=== PATIENT | female | born 1950 | race Caucasian/White ===

== ENCOUNTER 2021-01-28 17:40 | Observation (INO) | payer OTHER ==
[2021-01-28 20:41] LABS: BASO % 0.3 % (0-2.0); HEMATOCRIT 35.3 % (32.4-45.2); HEMOGLOBIN 12.1 GM/dL (10.7-15.3); LYMPH % 11.3 % (8-40); MCH 30.7 pg (25.7-33.7); MCHC 34.2 g/dl (32.0-36.0); MEAN CELL VOLUME 89.8 fl (80-96); MEAN PLT VOLUME 6.7 fl (7.5-11.1); MONO % 2.8 % (3.8-10.2); NEUT % 85.6 % (42.8-82.8); PLATELET COUNT 349 K/MM3 (134-434); RBC 3.93 M/mm3 (3.60-5.2); WHITE BLOOD COUNT 5.7 K/mm3 (4.0-10.0)
[2021-01-28 21:11] LABS: POTASSIUM 4.2 mmol/L (3.5-5.1)
[2021-01-28 21:13] LABS: CALCIUM 9.8 mg/dL (8.5-10.1)
[2021-01-28 21:14] LABS: ALBUMIN 4.1 g/dl (3.4-5.0)
[2021-01-28 21:16] LABS: CREATININE 1.1 mg/dL (0.55-1.3)
[2021-01-28 21:18] LABS: BILIRUBIN,TOTAL 0.5 mg/dL (0.2-1); TOT PROT 7.6 g/dl (6.4-8.2)
[2021-01-28] MEDS ORDERED: SODIUM CHLORIDE 1,000 ML IV STA ×2 (21:23→22:00)
[2021-01-28] MEDS ORDERED: ACETAMINOPHEN 1000 MG/100 ML VIAL (NON FORMULARY) IVPB PRN (21:32)
[2021-01-28] MEDS ORDERED: ACETAMINOPHEN INJECTION 100 ML IVPB ONE (21:56)
[2021-01-28 22:44] LABS: URINE APPEARANCE CLEAR; URINE BILIRUBIN NEGATIVE (NEGATIVE); URINE COLOR YELLOW; URINE GLUCOSE (UA) 2+ (NEGATIVE); URINE KETONE NEGATIVE (NEGATIVE); URINE LEUK ESTERASE NEGATIVE (NEGATIVE); URINE NITRITE NEGATIVE (NEGATIVE); URINE PROTEIN NEGATIVE (NEGATIVE); URINE UROBILINOGEN 0.2 mg/dL (0.2-1.0)
[2021-01-29] MEDS ORDERED: ACETAMINOPHEN 325 MG TABLET (FP) PO PRN (04:21)
[2021-01-29] MEDS ORDERED: METOCLOPRAMIDE HCL INJECTION 10 MG/2 ML VIAL IVPUSH PRN (04:23)
[2021-01-29] MEDS: SODIUM CHLORIDE 1,000 ML IV SCH (05:22)
[2021-01-29 05:37] LABS: HEMATOCRIT 30.5 % (32.4-45.2); HEMOGLOBIN 10.5 GM/dL (10.7-15.3); MCH 31.2 pg (25.7-33.7); MCHC 34.4 g/dl (32.0-36.0); MEAN CELL VOLUME 90.6 fl (80-96); MEAN PLT VOLUME 6.8 fl (7.5-11.1); PLATELET COUNT 296 K/MM3 (134-434); RBC 3.37 M/mm3 (3.60-5.2); RDW 13.9 % (11.6-15.6); WHITE BLOOD COUNT 4.5 K/mm3 (4.0-10.0)
[2021-01-29] MEDS ORDERED: LEVOTHYROXINE NA 25 MCG TABLET (FP) ONE (06:04)
[2021-01-29 06:05] LABS: CALCIUM 8.4 mg/dL (8.5-10.1); POTASSIUM 3.8 mmol/L (3.5-5.1)
[2021-01-29 06:07] LABS: BLOOD UREA NITROGEN 17.2 mg/dL (7-18)
[2021-01-29 06:09] LABS: CREATININE 0.9 mg/dL (0.55-1.3)
[2021-01-29] MEDS: LEVOTHYROXINE NA 50 MCG TABLET (FP) PO SCH (06:16)
[2021-01-29] MEDS: INSULIN SLIDING SCALE (NOVOLOG) 1 VIAL SQ SCH ×4 (08:30→21:18)
[2021-01-29] MEDS ORDERED: LOSARTAN POTASSIUM 50 MG TABLET ONE (08:44)
[2021-01-29] MEDS ORDERED: CHOLECALCIFEROL (VIT D3) 1,000 UNIT (25 MCG) TABLET ONE (08:44)
[2021-01-29] MEDS ORDERED: ENOXAPARIN NA (PORCINE) 40 MG/0.4 ML DISP.SYRIN SQ ONE (08:45)
[2021-01-29] MEDS: LOSARTAN POTASSIUM 50 MG TABLET PO SCH (09:18)
[2021-01-29] MEDS: CHOLECALCIFEROL (VIT D3) 1,000 UNIT (25 MCG) TABLET PO SCH (09:18)
[2021-01-29] MEDS: MEMANTINE HCL 10 MG TABLET (FP) PO SCH ×2 (09:18→21:59)
[2021-01-29] MEDS: ENOXAPARIN NA (PORCINE) 40 MG/0.4 ML DISP.SYRIN SQ SCH (09:18)
[2021-01-29] MEDS ORDERED: CILOSTAZOL 100 MG TABLET PO SCH (10:00)
[2021-01-29] MEDS ORDERED: LOVASTATIN 20 MG PO SCH (10:00)
[2021-01-29 16:22] VITALS: BMI 27.7
[2021-01-29] MEDS ORDERED: ATORVASTATIN CA 10 MG TABLET (FP) PO SCH (22:00)
[2021-01-30] MEDS: INSULIN SLIDING SCALE (NOVOLOG) 1 VIAL SQ SCH ×2 (06:00→12:36)
[2021-01-30] MEDS: LEVOTHYROXINE NA 50 MCG TABLET (FP) PO SCH (06:04)
[2021-01-30] MEDS ORDERED: INSULIN (NOVOLOG) ASPART 100 UNITS/ML 10ML VIAL ONE (06:10)
[2021-01-30] MEDS ORDERED: INSULIN (LEVEMIR) 100 UNITS/ML UNITS SQ SCH (07:00)
[2021-01-30 07:50] LABS: HEMATOCRIT 34.4 % (32.4-45.2); HEMOGLOBIN 11.6 GM/dL (10.7-15.3); MCH 30.6 pg (25.7-33.7); MCHC 33.6 g/dl (32.0-36.0); MEAN CELL VOLUME 91.1 fl (80-96); MEAN PLT VOLUME 6.7 fl (7.5-11.1); PLATELET COUNT 343 K/MM3 (134-434); RBC 3.78 M/mm3 (3.60-5.2); RDW 14.1 % (11.6-15.6); WHITE BLOOD COUNT 4.2 K/mm3 (4.0-10.0)
[2021-01-30 08:09] LABS: POTASSIUM 3.5 mmol/L (3.5-5.1)
[2021-01-30 08:13] LABS: BLOOD UREA NITROGEN 16.3 mg/dL (7-18); CALCIUM 8.9 mg/dL (8.5-10.1)
[2021-01-30 08:16] LABS: ALBUMIN 3.8 g/dl (3.4-5.0); CREATININE 0.9 mg/dL (0.55-1.3)
[2021-01-30 08:18] LABS: BILIRUBIN,TOTAL 0.6 mg/dL (0.2-1); TOT PROT 6.7 g/dl (6.4-8.2)
[2021-01-30] MEDS ORDERED: PT OWN MED DRAWER 7, Y5N ONE (09:37)
[2021-01-30] MEDS: LOSARTAN POTASSIUM 50 MG TABLET PO SCH (09:41)
[2021-01-30] MEDS: ENOXAPARIN NA (PORCINE) 40 MG/0.4 ML DISP.SYRIN SQ SCH (09:42)
[2021-01-30] MEDS: MEMANTINE HCL 10 MG TABLET (FP) PO SCH (09:42)
[2021-01-30] MEDS: CHOLECALCIFEROL (VIT D3) 1,000 UNIT (25 MCG) TABLET PO SCH (09:42)
[2021-01-30] MEDS: SODIUM CHLORIDE 1,000 ML IV SCH (09:47)
[2021-01-30 14:13] VITALS: BP 126/74; PULSE 65; TEMP 98.7
== END 2021-01-30 14:52 | disposition home or self-care (01) ==
LOC: JER 17:40 → INTOOBSV 01-29 03:29 → JERBED 01-29 03:29 → J7W 01-29 11:57
PROVIDERS: ADMIT Hospitalist
PROC: 3E033NZ Introduction of Analgesics, Hypnotics, Sedatives into Peripheral Vein, Percutaneous Approach (ICD-10-PCS; principal; 2021-01-29)
PROC: 3E023GC Introduction of Other Therapeutic Substance into Muscle, Percutaneous Approach (ICD-10-PCS; 2021-01-29)
PROC: 3E013VG Introduction of Insulin into Subcutaneous Tissue, Percutaneous Approach (ICD-10-PCS; 2021-01-29)
PROC: 3E0337Z Introduction of Electrolytic and Water Balance Substance into Peripheral Vein, Percutaneous Approach (ICD-10-PCS; 2021-01-29)
DX: G30.9 Alzheimer's disease, unspecified (principal); F02.80 Dementia in other diseases classified elsewhere, unspecified severity, without behavioral disturbance, psychotic disturbance, mood disturbance, and anxiety; E11.9 Type 2 diabetes mellitus without complications; I10 Essential (primary) hypertension; E78.5 Hyperlipidemia, unspecified; E03.9 Hypothyroidism, unspecified; Z29.9 Encounter for prophylactic measures, unspecified
CPT/HCPCS: 36415; 70450-TC; 71250-TC; 74176-TC; 80048; 80053; 81003; 82378; 82550; 82728; 82962; 83540; 83550; 83605; 83690; 84484; 85025; 85027; 87086; 93005; 93010; 96361; 96372; 96374; 96375; 99285-25; C9803; G0378; J0131; U0003

== ENCOUNTER 2021-05-21 05:26 | Day surgery (SDC) | payer OTHER ==
[2021-05-20 14:50] VITALS: BMI 26.5
[2021-05-21 13:34] VITALS: TEMP 97.3
[2021-05-21 14:28] VITALS: BP 119/69; PULSE 84
== END 2021-05-21 14:50 | disposition home or self-care (01) ==
LOC: JASU-ENDO 05:26
PROVIDERS: ATTEND Internal Medicine Gastroenterology
PROC: 0DJD8ZZ Inspection of Lower Intestinal Tract, Via Natural or Artificial Opening Endoscopic (ICD-10-PCS; principal; 2021-05-21 13:09)
DX: Z12.11 Encounter for screening for malignant neoplasm of colon (principal)
CPT/HCPCS: C9803; U0003; U0005

== ENCOUNTER 2022-03-13 17:15 | Inpatient (IN) | payer OTHER ==
[2022-03-13] MEDS ORDERED: LACTATED RINGERS SOLUTION 1000 ML INFUS.BAG IV ONE ×2 (17:59→19:46)
[2022-03-13 18:27] LABS: BASO % 1.4 % (0-2.0); HEMATOCRIT 31.9 % (32.4-45.2); HEMOGLOBIN 10.5 GM/dL (10.7-15.3); LYMPH % 21.8 % (8-40); MCH 28.2 pg (25.7-33.7); MCHC 32.9 g/dl (32.0-36.0); MEAN CELL VOLUME 85.7 fl (80-96); MEAN PLT VOLUME 7.3 fl (7.5-11.1); MONO % 14.5 % (3.8-10.2); NEUT % 60.3 % (42.8-82.8); PLATELET COUNT 207 10^3/uL (134-434); RBC 3.73 M/mm3 (3.60-5.2); RDW 17.6 % (11.6-15.6); WHITE BLOOD COUNT 2.5 K/mm3 (4.0-10.0)
[2022-03-13 18:35] LABS: INR 1.03 (0.83-1.09); PROTHROMBIN TIME (PATIENT) 11.9 SEC (9.7-13.0)
[2022-03-13 18:38] LABS: ACTIVATED PTT 28.4 SECONDS (25.2-36.5)
[2022-03-13 18:46] LABS: CALCIUM 8.3 mg/dL (8.5-10.1)
[2022-03-13 18:47] LABS: ALBUMIN 2.5 g/dl (3.4-5.0); BLOOD UREA NITROGEN 21.6 mg/dL (7-18)
[2022-03-13 18:50] LABS: CREATININE 0.9 mg/dL (0.55-1.3)
[2022-03-13 18:51] LABS: BILIRUBIN,TOTAL 0.7 mg/dL (0.2-1); TOT PROT 5.6 g/dl (6.4-8.2)
[2022-03-13] MEDS ORDERED: AMPICILLIN NA/SULBACTAM NA 1.5 GM in SODIUM CHLORIDE 100 ML IVPB ONE (19:18)
[2022-03-13 19:30] LABS: EPI CELLS 4 /uL (0-25.1); HYALINE CASTS 0 /uL (0-3.1); URINE APPEARANCE CLEAR; URINE BACTERIA >9,000 /uL (0-1359); URINE BILIRUBIN NEGATIVE (NEGATIVE); URINE COLOR YELLOW; URINE GLUCOSE (UA) 3+ (NEGATIVE); URINE KETONE NEGATIVE (NEGATIVE); URINE LEUK ESTERASE NEGATIVE (NEGATIVE); URINE NITRITE POSITIVE (NEGATIVE); URINE PROTEIN NEGATIVE (NEGATIVE); URINE RBC 3 /uL (0-23.9); URINE UROBILINOGEN 0.2 mg/dL (0.2-1.0); URINE WBC 18 /uL (0-25.8)
[2022-03-13 20:20] LABS: ANISOCYTOSIS 1+; MACROCYTOSIS 1+
[2022-03-13 20:22] LABS: PLATELET ESTIMATE ADEQUATE
[2022-03-13] MEDS ORDERED: CEFTRIAXONE 1 GM in DEXTROSE 5%-WATER - 100 ML IVPB ONE (20:35)
[2022-03-14] MEDS: SODIUM CHLORIDE 1,000 ML IV SCH ×2 (03:36→17:21)
[2022-03-14] MEDS: LEVOTHYROXINE NA 50 MCG TABLET (FP) PO SCH ×2 (06:26→06:32)
[2022-03-14] MEDS: INSULIN SLIDING SCALE (NOVOLOG) 1 VIAL SQ SCH ×4 (06:26→22:46)
[2022-03-14] MEDS ORDERED: cefTRIAXone SODIUM 1 GM VIAL ONE (09:19)
[2022-03-14] MEDS ORDERED: DEXTROSE 5%-WATER - 50 ML IVPB ONE (09:19)
[2022-03-14] MEDS: QUEtiapine FUMARATE 25 MG TABLET PO SCH (09:20)
[2022-03-14] MEDS: MIRTAZAPINE 15 MG TABLET (FP) PO SCH (09:21)
[2022-03-14] MEDS: LOSARTAN POTASSIUM 50 MG TABLET PO SCH (09:21)
[2022-03-14] MEDS: CEFTRIAXONE 1 GM in DEXTROSE 5%-WATER - 50 ML IVPB SCH (09:22)
[2022-03-14] MEDS: ENOXAPARIN NA (PORCINE) 40 MG/0.4 ML DISP.SYRIN SQ SCH (09:22)
[2022-03-14] MEDS: DONEPEZIL HCL 10 MG TABLET (FP) PO SCH (22:45)
[2022-03-14] MEDS: ATORVASTATIN CA 10 MG TABLET (FP) PO SCH (22:45)
[2022-03-15] MEDS: DEXTROSE 5%-NORMAL SALINE 1,000 ML IV SCH (01:55)
[2022-03-15] MEDS: LEVOTHYROXINE NA 50 MCG TABLET (FP) PO SCH (06:08)
[2022-03-15] MEDS: INSULIN SLIDING SCALE (NOVOLOG) 1 VIAL SQ SCH ×3 (06:08→17:11)
[2022-03-15 08:43] LABS: HEMATOCRIT 30.3 % (32.4-45.2); HEMOGLOBIN 9.9 GM/dL (10.7-15.3); MCH 28.2 pg (25.7-33.7); MCHC 32.8 g/dl (32.0-36.0); MEAN CELL VOLUME 86.1 fl (80-96); MEAN PLT VOLUME 6.8 fl (7.5-11.1); PLATELET COUNT 204 10^3/uL (134-434); RBC 3.52 M/mm3 (3.60-5.2); RDW 17.6 % (11.6-15.6); WHITE BLOOD COUNT 2.1 K/mm3 (4.0-10.0)
[2022-03-15 08:58] LABS: CHLORIDE 110 mmol/L (98-107); SODIUM 138 mmol/L (136-145)
[2022-03-15 09:03] LABS: ALBUMIN 2.2 g/dl (3.4-5.0); ANION GAP 5 MMOL/L (8-16); CALCIUM 7.7 mg/dL (8.5-10.1); CO2 24 mmol/L (21-32); GLUCOSE,RANDOM 113 mg/dL (74-106)
[2022-03-15 09:06] LABS: PHOSPHOROUS 3.4 mg/dL (2.5-4.9); SGPT/ALT 93 U/L (13-61)
[2022-03-15 09:07] LABS: CREATININE 0.6 mg/dL (0.55-1.3); SGOT/AST 84 U/L (15-37)
[2022-03-15 09:08] LABS: BILIRUBIN,TOTAL 0.6 mg/dL (0.2-1); TOT PROT 4.8 g/dl (6.4-8.2)
[2022-03-15 09:10] LABS: ALK PHOS > 1000 U/L (45-117)
[2022-03-15] MEDS ORDERED: cefTRIAXone SODIUM 1 GM VIAL ONE (09:12)
[2022-03-15] MEDS ORDERED: DEXTROSE 5%-WATER - 50 ML IVPB ONE (09:13)
[2022-03-15] MEDS: QUEtiapine FUMARATE 25 MG TABLET PO SCH (09:23)
[2022-03-15] MEDS: MIRTAZAPINE 15 MG TABLET (FP) PO SCH (09:23)
[2022-03-15] MEDS: LOSARTAN POTASSIUM 50 MG TABLET PO SCH (09:23)
[2022-03-15] MEDS: ENOXAPARIN NA (PORCINE) 40 MG/0.4 ML DISP.SYRIN SQ SCH (09:24)
[2022-03-15] MEDS: CEFTRIAXONE 1 GM in DEXTROSE 5%-WATER - 50 ML IVPB SCH (10:31)
[2022-03-15 14:13] VITALS: BMI 23.0
[2022-03-15] MEDS: ATORVASTATIN CA 10 MG TABLET (FP) PO SCH (21:11)
[2022-03-15] MEDS: DONEPEZIL HCL 10 MG TABLET (FP) PO SCH (21:11)
[2022-03-15] MEDS ORDERED: INSULIN (NOVOLOG) ASPART 100 UNITS/ML 10ML VIAL ONE (23:53)
[2022-03-16] MEDS: DEXTROSE 5%-NORMAL SALINE 1,000 ML IV SCH (03:34)
[2022-03-16] MEDS: LEVOTHYROXINE NA 50 MCG TABLET (FP) PO SCH (08:04)
[2022-03-16] MEDS: INSULIN SLIDING SCALE (NOVOLOG) 1 VIAL SQ SCH ×5 (08:09→22:45)
[2022-03-16 08:30] LABS: HEMATOCRIT 28.4 % (32.4-45.2); HEMOGLOBIN 9.3 GM/dL (10.7-15.3); MCH 28.2 pg (25.7-33.7); MCHC 32.7 g/dl (32.0-36.0); MEAN CELL VOLUME 86.2 fl (80-96); MEAN PLT VOLUME 6.9 fl (7.5-11.1); PLATELET COUNT 198 10^3/uL (134-434); RDW 17.8 % (11.6-15.6)
[2022-03-16 08:44] LABS: WHITE BLOOD COUNT 1.6 K/mm3 (4.0-10.0)
[2022-03-16 08:48] LABS: ALBUMIN 2.1 g/dl (3.4-5.0); BLOOD UREA NITROGEN 8.9 mg/dL (7-18); MAGNESIUM 1.8 mg/dL (1.8-2.4)
[2022-03-16 08:50] LABS: CALCIUM 7.6 mg/dL (8.5-10.1)
[2022-03-16 08:51] LABS: CREATININE 0.5 mg/dL (0.55-1.3); PHOSPHOROUS 2.6 mg/dL (2.5-4.9)
[2022-03-16 08:52] LABS: BILIRUBIN,TOTAL 0.8 mg/dL (0.2-1); TOT PROT 4.6 g/dl (6.4-8.2)
[2022-03-16] MEDS: LOSARTAN POTASSIUM 50 MG TABLET PO SCH (09:50)
[2022-03-16] MEDS: QUEtiapine FUMARATE 25 MG TABLET PO SCH (09:50)
[2022-03-16] MEDS: ENOXAPARIN NA (PORCINE) 40 MG/0.4 ML DISP.SYRIN SQ SCH (09:50)
[2022-03-16] MEDS: MIRTAZAPINE 15 MG TABLET (FP) PO SCH ×2 (10:16→22:36)
[2022-03-16] MEDS ORDERED: DEXTROSE 5%-WATER - 50 ML IVPB ONE (10:27)
[2022-03-16] MEDS ORDERED: cefTRIAXone SODIUM 1 GM VIAL ONE (10:27)
[2022-03-16] MEDS: CEFTRIAXONE 1 GM in DEXTROSE 5%-WATER - 50 ML IVPB SCH (10:34)
[2022-03-16] MEDS ORDERED: INSULIN (NOVOLOG) ASPART 100 UNITS/ML 10ML VIAL ONE ×4 (11:28→17:03)
[2022-03-16 13:18] LABS: URIC ACID 3.6 mg/dL (2.6-7.2)
[2022-03-16] MEDS: DONEPEZIL HCL 10 MG TABLET (FP) PO SCH (22:36)
[2022-03-16] MEDS: ATORVASTATIN CA 10 MG TABLET (FP) PO SCH (22:36)
[2022-03-17] MEDS: DEXTROSE 5%-NORMAL SALINE 1,000 ML IV SCH (02:56)
[2022-03-17] MEDS: INSULIN SLIDING SCALE (NOVOLOG) 1 VIAL SQ SCH ×4 (06:36→22:01)
[2022-03-17] MEDS: LEVOTHYROXINE NA 50 MCG TABLET (FP) PO SCH (06:39)
[2022-03-17] MEDS: LOSARTAN POTASSIUM 50 MG TABLET PO SCH (09:31)
[2022-03-17] MEDS: ENOXAPARIN NA (PORCINE) 40 MG/0.4 ML DISP.SYRIN SQ SCH (09:31)
[2022-03-17] MEDS: QUEtiapine FUMARATE 25 MG TABLET PO SCH (09:31)
[2022-03-17] MEDS ORDERED: cefTRIAXone SODIUM 1 GM VIAL ONE (10:27)
[2022-03-17] MEDS ORDERED: DEXTROSE 5%-WATER - 50 ML IVPB ONE (10:27)
[2022-03-17] MEDS: CEFTRIAXONE 1 GM in DEXTROSE 5%-WATER - 50 ML IVPB SCH (10:34)
[2022-03-17] MEDS ORDERED: IBUPROFEN 400 MG TABLET (FP) PO PRN (11:26)
[2022-03-17] MEDS ORDERED: INSULIN (NOVOLOG) ASPART 100 UNITS/ML 10ML VIAL ONE ×4 (11:30→20:06)
[2022-03-17 16:44] LABS: HEMATOCRIT 31.4 % (32.4-45.2); HEMOGLOBIN 10.2 GM/dL (10.7-15.3); MCH 28.1 pg (25.7-33.7); MCHC 32.4 g/dl (32.0-36.0); MEAN CELL VOLUME 86.9 fl (80-96); MEAN PLT VOLUME 6.7 fl (7.5-11.1); PLATELET COUNT 191 10^3/uL (134-434); RBC 3.61 M/mm3 (3.60-5.2); RDW 18.1 % (11.6-15.6)
[2022-03-17 16:47] LABS: WHITE BLOOD COUNT 1.5 K/mm3 (4.0-10.0)
[2022-03-17 17:15] LABS: CALCIUM 7.6 mg/dL (8.5-10.1)
[2022-03-17 17:16] LABS: ALBUMIN 2.3 g/dl (3.4-5.0); BLOOD UREA NITROGEN 6.5 mg/dL (7-18)
[2022-03-17 17:17] LABS: BILIRUBIN,DIRECT 0.2 mg/dL (0.0-0.2)
[2022-03-17 17:18] LABS: ANISOCYTOSIS 0; CREATININE 0.7 mg/dL (0.55-1.3); MACROCYTOSIS 0
[2022-03-17 17:20] LABS: BILIRUBIN,TOTAL 0.4 mg/dL (0.2-1)
[2022-03-17] MEDS: DONEPEZIL HCL 10 MG TABLET (FP) PO SCH (22:00)
[2022-03-17] MEDS: MIRTAZAPINE 15 MG TABLET (FP) PO SCH (22:00)
[2022-03-17] MEDS: ATORVASTATIN CA 10 MG TABLET (FP) PO SCH (22:00)
[2022-03-18] MEDS: DEXTROSE 5%-NORMAL SALINE 1,000 ML IV SCH (03:25)
[2022-03-18] MEDS: LEVOTHYROXINE NA 50 MCG TABLET (FP) PO SCH (06:09)
[2022-03-18] MEDS: INSULIN SLIDING SCALE (NOVOLOG) 1 VIAL SQ SCH ×4 (06:09→22:43)
[2022-03-18 08:06] LABS: CARCINOEMBRYONIC ANTIGEN 2.6 ng/mL (0.0-4.7)
[2022-03-18 09:01] LABS: HEMATOCRIT 30.4 % (32.4-45.2); HEMOGLOBIN 9.9 GM/dL (10.7-15.3); MCHC 32.6 g/dl (32.0-36.0); MEAN PLT VOLUME 6.7 fl (7.5-11.1); PLATELET COUNT 205 10^3/uL (134-434); RBC 3.53 M/mm3 (3.60-5.2); RDW 18.2 % (11.6-15.6)
[2022-03-18 09:28] LABS: CALCIUM 7.8 mg/dL (8.5-10.1)
[2022-03-18 09:29] LABS: ALBUMIN 2.2 g/dl (3.4-5.0)
[2022-03-18] MEDS ORDERED: DEXTROSE 5%-WATER - 50 ML IVPB ONE (09:29)
[2022-03-18] MEDS ORDERED: cefTRIAXone SODIUM 1 GM VIAL ONE (09:29)
[2022-03-18 09:32] LABS: CREATININE 0.7 mg/dL (0.55-1.3)
[2022-03-18 09:33] LABS: TOT PROT 4.7 g/dl (6.4-8.2)
[2022-03-18 09:34] LABS: WHITE BLOOD COUNT 1.9 K/mm3 (4.0-10.0)
[2022-03-18 09:35] LABS: BILIRUBIN,TOTAL 0.5 mg/dL (0.2-1)
[2022-03-18] MEDS: CEFTRIAXONE 1 GM in DEXTROSE 5%-WATER - 50 ML IVPB SCH (10:29)
[2022-03-18] MEDS: ENOXAPARIN NA (PORCINE) 40 MG/0.4 ML DISP.SYRIN SQ SCH (10:37)
[2022-03-18] MEDS: QUEtiapine FUMARATE 25 MG TABLET PO SCH (10:37)
[2022-03-18] MEDS: LOSARTAN POTASSIUM 50 MG TABLET PO SCH (10:37)
[2022-03-18 11:23] LABS: ANISOCYTOSIS 2+; MACROCYTOSIS 0; OVALOCYTE 1+; TEAR DROP CELLS 1+; TOXIC GRANULATION 2+
[2022-03-18 17:07] LABS: GLIADIN ANTIBODY IGA 3 units (0-19); GLIADIN ANTIBODY IGG 1 units (0-19); TRANSGLUTAMINASE IGG < 2 U/mL (0-5)
[2022-03-18] MEDS: MIRTAZAPINE 15 MG TABLET (FP) PO SCH (22:38)
[2022-03-18] MEDS: ATORVASTATIN CA 10 MG TABLET (FP) PO SCH (22:38)
[2022-03-18] MEDS: DONEPEZIL HCL 10 MG TABLET (FP) PO SCH (22:38)
[2022-03-19] MEDS: DEXTROSE 5%-NORMAL SALINE 1,000 ML IV SCH (02:59)
[2022-03-19] MEDS: LEVOTHYROXINE NA 50 MCG TABLET (FP) PO SCH (06:14)
[2022-03-19] MEDS: INSULIN SLIDING SCALE (NOVOLOG) 1 VIAL SQ SCH ×3 (06:14→17:51)
[2022-03-19 09:00] LABS: HEMATOCRIT 30.1 % (32.4-45.2); HEMOGLOBIN 9.8 GM/dL (10.7-15.3); MCH 28.2 pg (25.7-33.7); MCHC 32.7 g/dl (32.0-36.0); MEAN CELL VOLUME 86.5 fl (80-96); MEAN PLT VOLUME 6.7 fl (7.5-11.1); PLATELET COUNT 195 10^3/uL (134-434); RBC 3.48 M/mm3 (3.60-5.2); RDW 18.1 % (11.6-15.6); WHITE BLOOD COUNT 2.1 K/mm3 (4.0-10.0)
[2022-03-19 09:24] LABS: BLOOD UREA NITROGEN 5.9 mg/dL (7-18); CALCIUM 7.7 mg/dL (8.5-10.1)
[2022-03-19 09:25] LABS: ALBUMIN 2.2 g/dl (3.4-5.0)
[2022-03-19 09:28] LABS: CREATININE 0.7 mg/dL (0.55-1.3)
[2022-03-19 09:29] LABS: TOT PROT 4.6 g/dl (6.4-8.2)
[2022-03-19] MEDS ORDERED: cefTRIAXone SODIUM 1 GM VIAL ONE (09:50)
[2022-03-19] MEDS ORDERED: DEXTROSE 5%-WATER - 50 ML IVPB ONE (09:51)
[2022-03-19] MEDS: ENOXAPARIN NA (PORCINE) 40 MG/0.4 ML DISP.SYRIN SQ SCH (09:56)
[2022-03-19] MEDS: QUEtiapine FUMARATE 25 MG TABLET PO SCH (09:57)
[2022-03-19] MEDS: LOSARTAN POTASSIUM 50 MG TABLET PO SCH (09:57)
[2022-03-19 10:00] LABS: BILIRUBIN,TOTAL 0.4 mg/dL (0.2-1)
[2022-03-19] MEDS: CEFTRIAXONE 1 GM in DEXTROSE 5%-WATER - 50 ML IVPB SCH (10:59)
[2022-03-19] MEDS ORDERED: INSULIN (NOVOLOG) ASPART 100 UNITS/ML 10ML VIAL ONE (12:08)
[2022-03-19 14:31] VITALS: BP 109/60; PULSE 75; TEMP 98.7
[2022-03-19] MEDS ORDERED: LORazepam 1 MG TABLET PO PRN (16:10)
[2022-03-19 21:56] LABS: HIV INTERPRETATION NEGATIVE (NEGATIVE)
== END 2022-03-19 21:16 | disposition home or self-care (01) | DRG 690 ==
LOC: JER 17:15 → JERBED 20:39 → J8W 03-14 02:12
PROVIDERS: ADMIT Internal Medicine; ATTEND Internal Medicine
DX: N39.0 Urinary tract infection, site not specified (principal); E87.1 Hypo-osmolality and hyponatremia; K52.9 Noninfective gastroenteritis and colitis, unspecified; E03.9 Hypothyroidism, unspecified; I10 Essential (primary) hypertension; E11.9 Type 2 diabetes mellitus without complications; G30.9 Alzheimer's disease, unspecified; E78.5 Hyperlipidemia, unspecified; R74.8 Abnormal levels of other serum enzymes; E86.0 Dehydration; R74.01 Elevation of levels of liver transaminase levels; R63.4 Abnormal weight loss; Z68.23 Body mass index [BMI] 23.0-23.9, adult; B96.20 Unspecified Escherichia coli [E. coli] as the cause of diseases classified elsewhere; D72.819 Decreased white blood cell count, unspecified
CPT/HCPCS: 36415; 71045-TC-FY; 74177-TC; 74182-TC; 76705-TC; 80048; 80053; 80076; 81003; 82105; 82306; 82378; 82607; 82728; 82746; 82784; 82962; 82977; 83010; 83516; 83540; 83550; 83605; 83615; 83735; 83970; 84080; 84100; 84132; 84439; 84443; 84484; 84550; 85025; 85027; 85610; 85730; 86038; 86140; 86301; 86803; 86850; 86900; 86901; 87040; 87086; 87177; 87186; 87209; 87324; 87340; 87389; 87449; 87517; 87529; 93005; 93010; 99285-25; A9579; C9803-CS; Q9967; U0003; U0005

== ENCOUNTER 2022-04-09 13:39 | Emergency (ER) | payer OTHER ==
[2022-04-09 13:50] VITALS: TEMP 98.1; BMI 21.7
[2022-04-09 15:23] LABS: HEMATOCRIT 28.6 % (32.4-45.2); HEMOGLOBIN 9.6 GM/dL (10.7-15.3); MCH 27.8 pg (25.7-33.7); MCHC 33.4 g/dl (32.0-36.0); MEAN CELL VOLUME 83.4 fl (80-96); MEAN PLT VOLUME 7.5 fl (7.5-11.1); PLATELET COUNT 116 10^3/uL (134-434); RBC 3.43 M/mm3 (3.60-5.2); RDW 17.9 % (11.6-15.6)
[2022-04-09 15:29] LABS: WHITE BLOOD COUNT 1.6 K/mm3 (4.0-10.0)
[2022-04-09 15:30] LABS: INR 1.01 (0.83-1.09); PROTHROMBIN TIME (PATIENT) 11.6 SEC (9.7-13.0)
[2022-04-09 15:43] LABS: CALCIUM 8.3 mg/dL (8.5-10.1)
[2022-04-09 15:44] LABS: ALBUMIN 2.1 g/dl (3.4-5.0); BLOOD UREA NITROGEN 17.7 mg/dL (7-18); MAGNESIUM 2.3 mg/dL (1.8-2.4)
[2022-04-09 15:47] LABS: CREATININE 0.6 mg/dL (0.55-1.3)
[2022-04-09 15:49] LABS: BILIRUBIN,TOTAL 4.9 mg/dL (0.2-1); TOT PROT 5.2 g/dl (6.4-8.2)
[2022-04-09 16:17] LABS: URINE APPEARANCE CLEAR; URINE BILIRUBIN 2+ (NEGATIVE); URINE COLOR DK YELLOW; URINE GLUCOSE (UA) 2+ (NEGATIVE); URINE KETONE NEGATIVE (NEGATIVE); URINE LEUK ESTERASE NEGATIVE (NEGATIVE); URINE NITRITE NEGATIVE (NEGATIVE); URINE PROTEIN TRACE (NEGATIVE)
[2022-04-09 16:43] LABS: ANISOCYTOSIS 0; HELMET CELLS 0; HOWELL-JOLLY BODIES 0; MACROCYTOSIS 0; OVALOCYTE 0; ROULEAU 0; SICKELED CELLS 0; TARGET CELLS 0; TEAR DROP CELLS 0; TOXIC GRANULATION 0
[2022-04-09 19:58] VITALS: BP 119/65; PULSE 75
[2022-04-09 21:33] LABS: MAGNESIUM 2.2 mg/dL (1.8-2.4)
[2022-04-09 21:36] LABS: BILIRUBIN,DIRECT 4.2 mg/dL (0.0-0.2)
[2022-04-09 21:37] LABS: PHOSPHOROUS 2.9 mg/dL (2.5-4.9)
== END 2022-04-09 23:30 | disposition short-term general hospital (02) ==
LOC: JER 13:39
DX: E80.6 Other disorders of bilirubin metabolism (principal)
CPT/HCPCS: 36415; 71045-TC-FY; 74176-TC; 80053; 81003; 82248; 82607; 82728; 82746; 82977; 83540; 83550; 83615; 83735; 84100; 84443; 84484; 85025; 85610; 85730; 86704; 86708; 86803; 86850; 86900; 86901; 87086; 87340; 87517; 93005; 93010; 99285-25; C9803-CS; U0003; U0005

== ENCOUNTER 2022-06-06 12:36 | Inpatient (IN) | payer OTHER ==
[2022-06-06 13:19] VITALS: BMI 21.4
[2022-06-06 13:25] LABS: EPI CELLS 23 /uL (0-25.1); HYALINE CASTS 2 /uL (0-3.1); PH,URINE 5.5 (5.0-8.0); URINE APPEARANCE CLOUDY; URINE BACTERIA 110 /uL (0-1359); URINE BILIRUBIN 3+ (NEGATIVE); URINE COLOR DK YELLOW; URINE GLUCOSE (UA) 3+ (NEGATIVE); URINE KETONE TRACE (NEGATIVE); URINE LEUK ESTERASE NEGATIVE (NEGATIVE); URINE NITRITE NEGATIVE (NEGATIVE); URINE PROTEIN 1+ (NEGATIVE); URINE RBC 23 /uL (0-23.9); URINE WBC 6 /uL (0-25.8)
[2022-06-06] MEDS ORDERED: SODIUM CHLORIDE IV ONE (13:30)
[2022-06-06 13:45] LABS: VENOUS BASE EXCESS 0.7 mmol/L (-2-2); VENOUS O2 SATURATION 76.9 % (70-80); VENOUS PCO2 42.3 mmHg (38-52); VENOUS PH 7.399 (7.310-7.410)
[2022-06-06 13:50] LABS: INR 1.29 (0.83-1.09); PROTHROMBIN TIME (PATIENT) 14.9 SEC (9.7-13.0)
[2022-06-06 13:52] LABS: ACTIVATED PTT 32.5 SECONDS (25.2-36.5)
[2022-06-06] MEDS ORDERED: PIPERACILLIN/TAZOB 4.5 GM 4.5 GM in DEXTROSE 5%-WATER 100 ML IVPB ONE (14:04)
[2022-06-06] MEDS ORDERED: VANCOMYCIN 1 GM in D5W (PRE-DOCKED) 1,000 MG/250 ML IVPB ONE (14:04)
[2022-06-06] MEDS ORDERED: SODIUM CHLORIDE 0.9% 500 ML INFUS.BAG IV ONE (14:05)
[2022-06-06 14:06] LABS: CHLORIDE 119 mmol/L (98-107); SODIUM 153 mmol/L (136-145)
[2022-06-06 14:07] LABS: HEMATOCRIT 23.1 % (32.4-45.2); HEMOGLOBIN 7.4 GM/dL (10.7-15.3); MCH 28.5 pg (25.7-33.7); MEAN PLT VOLUME 7.6 fl (7.5-11.1); PLATELET COUNT 103 10^3/uL (134-434); RBC 2.59 M/mm3 (3.60-5.2); RDW 19.5 % (11.6-15.6)
[2022-06-06 14:08] LABS: ADD RBC MORPHOLOGY NO; CALCIUM 7.9 mg/dL (8.5-10.1)
[2022-06-06 14:09] LABS: ALBUMIN 1.4 g/dl (3.4-5.0); ANION GAP 9 MMOL/L (8-16); BLOOD UREA NITROGEN 25.7 mg/dL (7-18); CO2 26 mmol/L (21-32); GLUCOSE,RANDOM 313 mg/dL (74-106); MAGNESIUM 2.5 mg/dL (1.8-2.4)
[2022-06-06 14:11] LABS: WHITE BLOOD COUNT 1.1 K/mm3 (4.0-10.0)
[2022-06-06 14:12] LABS: CREATININE 0.6 mg/dL (0.55-1.3); PHOSPHOROUS 2.9 mg/dL (2.5-4.9); SGOT/AST 119 U/L (15-37); SGPT/ALT 51 U/L (13-61)
[2022-06-06 14:13] LABS: TOT PROT 4.5 g/dl (6.4-8.2)
[2022-06-06 14:14] LABS: BILIRUBIN,TOTAL 6.7 mg/dL (0.2-1)
[2022-06-06 14:15] LABS: ALK PHOS 830 U/L (45-117)
[2022-06-06 14:20] LABS: ANISOCYTOSIS 1+; MACROCYTOSIS 1+
[2022-06-06] MEDS ORDERED: VANCOMYCIN 1 GRAM (PRE-DOCKED) 1,000 MG/250 ML BAG IVPB ONE (14:20)
[2022-06-06] MEDS ORDERED: PIPERACILLIN/TAZOB 4.5 GM 4.5 GM/100 ML BAG IVPB ONE (14:20)
[2022-06-06] MEDS ORDERED: ACETAMINOPHEN 1000 MG/100 ML BAG IVPB ONE (14:48)
[2022-06-06] MEDS ORDERED: ACETAMINOPHEN INJECTION 100 ML IVPB ONE (15:20)
[2022-06-06 15:59] LABS: BILIRUBIN,DIRECT 5.9 mg/dL (0.0-0.2)
[2022-06-06] MEDS ORDERED: SODIUM CHLORIDE 0.45% 1,000 ML IV SCH (16:30)
[2022-06-07] MEDS ORDERED: ACETAMINOPHEN 325 MG TABLET (FP) PO PRN (03:25)
[2022-06-07] MEDS ORDERED: DEXAMETHASONE SOD PHOSPHATE 10 MG/1 ML VIAL IVPUSH SCH (03:36)
[2022-06-07] MEDS ORDERED: PIPERACILLIN/TAZOB 3.375 GM 3.375 GM/50 ML BAG IVPB ONE ×3 (03:47→19:27)
[2022-06-07] MEDS ORDERED: ACETAMINOPHEN 500 MG TABLET (FP) PO PRN (03:47)
[2022-06-07] MEDS ORDERED: DEXAMETHASONE SOD PHOSPHATE 10 MG/1 ML VIAL ONE ×2 (03:47→09:02)
[2022-06-07] MEDS: INSULIN SLIDING SCALE (NOVOLOG) 1 VIAL SQ SCH ×4 (04:00→23:16)
[2022-06-07] MEDS: LACTATED RINGERS SOLUTION 1,000 ML IV SCH (04:00)
[2022-06-07] MEDS: PIPERACILLIN/TAZOB 3.375 GM 3.375 GM in DEXTROSE 5%-WATER - 50 ML IVPB SCH ×3 (04:01→19:43)
[2022-06-07] MEDS: DEXAMETHASONE SOD PHOSPHATE 10 MG/1 ML VIAL IVPUSH SCH ×2 (04:01→09:43)
[2022-06-07] MEDS ORDERED: REMDESIVIR 200 MG in SODIUM CHLORIDE 250 ML IVPB ONE (05:00)
[2022-06-07] MEDS ORDERED: DONEPEZIL HCL 5 MG TABLET (FP) ONE (09:02)
[2022-06-07] MEDS ORDERED: PANTOPRAZOLE SODIUM 40 MG VIAL ONE (09:03)
[2022-06-07] MEDS: INSULIN (LEVEMIR) 100 UNITS/ML UNITS SQ SCH ×2 (09:32→23:16)
[2022-06-07] MEDS: LEVOTHYROXINE SODIUM 100 MCG VIAL IVPUSH SCH (09:44)
[2022-06-07] MEDS: PANTOPRAZOLE SODIUM 40 MG VIAL IVPUSH SCH (09:44)
[2022-06-07] MEDS ORDERED: ACETAMINOPHEN 1000 MG/100 ML BAG IVPB PRN (09:47)
[2022-06-07] MEDS ORDERED: ENOXAPARIN NA (PORCINE) 40 MG/0.4 ML DISP.SYRIN SQ SCH (10:00)
[2022-06-07] MEDS ORDERED: DONEPEZIL HCL 10 MG TABLET (FP) PO SCH (10:00)
[2022-06-07] MEDS ORDERED: LEVOTHYROXINE NA 50 MCG TABLET (FP) PO SCH (10:00)
[2022-06-07] MEDS ORDERED: MEMANTINE HCL 10 MG TABLET (FP) PO SCH (10:00)
[2022-06-07 10:32] LABS: INR 1.14 (0.83-1.09); PROTHROMBIN TIME (PATIENT) 13.1 SEC (9.7-13.0)
[2022-06-07 10:38] LABS: CALCIUM 7.5 mg/dL (8.5-10.1)
[2022-06-07 10:39] LABS: ALBUMIN 1.3 g/dl (3.4-5.0); MAGNESIUM 2.3 mg/dL (1.8-2.4)
[2022-06-07 10:41] LABS: BILIRUBIN,DIRECT 5.3 mg/dL (0.0-0.2); CREATININE 0.5 mg/dL (0.55-1.3)
[2022-06-07 10:42] LABS: PHOSPHOROUS 2.7 mg/dL (2.5-4.9)
[2022-06-07 10:44] LABS: TOT PROT 4.5 g/dl (6.4-8.2)
[2022-06-07] MEDS ORDERED: POTASSIUM PHOSPHATE 30 MM in DEXTROSE 5%-WATER - 500 ML IVPB ONE (12:30)
[2022-06-07] MEDS ORDERED: KCL 10 MEQ IVPB 10 MEQ/100 ML INFUS.BAG IVPB ONE ×3 (13:43→22:57)
[2022-06-07 14:08] LABS: HEMATOCRIT 22.8 % (32.4-45.2); HEMOGLOBIN 7.1 GM/dL (10.7-15.3); MCH 28.1 pg (25.7-33.7); MEAN CELL VOLUME 90.5 fl (80-96); MEAN PLT VOLUME 8.1 fl (7.5-11.1); PLATELET COUNT 76 10^3/uL (134-434); RBC 2.52 M/mm3 (3.60-5.2); RDW 19.4 % (11.6-15.6)
[2022-06-07] MEDS: KCL 10 MEQ IVPB 10 MEQ/100 ML INFUS.BAG IVPB SCH ×3 (14:12→23:16)
[2022-06-07 14:34] LABS: ANISOCYTOSIS 2+; MACROCYTOSIS 0
[2022-06-08] MEDS: INSULIN SLIDING SCALE (NOVOLOG) 1 VIAL SQ SCH ×4 (03:46→21:10)
[2022-06-08] MEDS: LACTATED RINGERS SOLUTION 1,000 ML IV SCH (03:48)
[2022-06-08] MEDS ORDERED: PIPERACILLIN/TAZOB 3.375 GM 3.375 GM in DEXTROSE 5%-WATER - 50 ML IVPB ONE (04:00)
[2022-06-08] MEDS ORDERED: VANCOMYCIN 1 GM/200 ML PREMIX BAG IVPB SCH (04:30)
[2022-06-08] MEDS ORDERED: PIPERACILLIN/TAZOBACTAM 3.375 GM VIAL IVPB ONE ×2 (05:07→20:22)
[2022-06-08] MEDS ORDERED: DEXTROSE 5%-WATER - 50 ML IVPB ONE ×2 (05:07→20:22)
[2022-06-08] MEDS: REMDESIVIR 100 MG in SODIUM CHLORIDE 250 ML IVPB SCH (06:01)
[2022-06-08 08:43] LABS: HEMATOCRIT 21.2 % (32.4-45.2); MCH 28.3 pg (25.7-33.7); MCHC 31.7 g/dl (32.0-36.0); MEAN CELL VOLUME 89.3 fl (80-96); MEAN PLT VOLUME 8.6 fl (7.5-11.1); PLATELET COUNT 95 10^3/uL (134-434); RBC 2.38 M/mm3 (3.60-5.2); RDW 19.3 % (11.6-15.6)
[2022-06-08 08:48] LABS: HEMOGLOBIN 6.7 GM/dL (10.7-15.3); WHITE BLOOD COUNT 1.6 K/mm3 (4.0-10.0)
[2022-06-08 08:53] LABS: CALCIUM 7.3 mg/dL (8.5-10.1)
[2022-06-08 08:54] LABS: ALBUMIN 1.2 g/dl (3.4-5.0); BLOOD UREA NITROGEN 33.1 mg/dL (7-18); MAGNESIUM 2.2 mg/dL (1.8-2.4)
[2022-06-08 08:57] LABS: CREATININE 0.5 mg/dL (0.55-1.3); PHOSPHOROUS 3.5 mg/dL (2.5-4.9)
[2022-06-08 08:58] LABS: TOT PROT 4.1 g/dl (6.4-8.2)
[2022-06-08 08:59] LABS: BILIRUBIN,TOTAL 5.5 mg/dL (0.2-1)
[2022-06-08 10:05] LABS: ANISOCYTOSIS 2+; MACROCYTOSIS 0
[2022-06-08] MEDS: PANTOPRAZOLE SODIUM 40 MG VIAL IVPUSH SCH (12:16)
[2022-06-08] MEDS: DEXAMETHASONE SOD PHOSPHATE 10 MG/1 ML VIAL IVPUSH SCH (12:16)
[2022-06-08] MEDS: INSULIN (LEVEMIR) 100 UNITS/ML UNITS SQ SCH (13:00)
[2022-06-08] MEDS ORDERED: DEXTROSE 50%-WATER - 25 GM/50 ML VIAL IVPUSH ONE (13:05)
[2022-06-08] MEDS ORDERED: DEXTROSE 50%-WATER 25 GM/50 ML DISP.SYRIN ONE (13:52)
[2022-06-08] MEDS: D5-1/2NS+20 MEQ KCL - 20 MEQ/1,000 ML INFUS.BAG IV SCH (17:46)
[2022-06-08] MEDS: LEVOTHYROXINE SODIUM 100 MCG VIAL IVPUSH SCH (17:52)
[2022-06-08] MEDS: PIPERACILLIN/TAZOB 3.375 GM 3.375 GM in DEXTROSE 5%-WATER - 50 ML IVPB SCH (20:52)
[2022-06-09] MEDS ORDERED: PIPERACILLIN/TAZOBACTAM 3.375 GM VIAL IVPB ONE ×3 (02:36→20:28)
[2022-06-09] MEDS ORDERED: DEXTROSE 5%-WATER - 50 ML IVPB ONE ×3 (02:37→20:28)
[2022-06-09] MEDS: PIPERACILLIN/TAZOB 3.375 GM 3.375 GM in DEXTROSE 5%-WATER - 50 ML IVPB SCH ×3 (03:24→20:53)
[2022-06-09] MEDS: INSULIN SLIDING SCALE (NOVOLOG) 1 VIAL SQ SCH ×4 (03:56→20:58)
[2022-06-09] MEDS ORDERED: VANCOMYCIN 1 GM/200 ML PREMIX BAG IVPB SCH (04:30)
[2022-06-09] MEDS: REMDESIVIR 100 MG in SODIUM CHLORIDE 250 ML IVPB SCH (05:55)
[2022-06-09 09:25] LABS: HEMATOCRIT 28.8 % (32.4-45.2); HEMOGLOBIN 9.5 GM/dL (10.7-15.3); MCH 28.9 pg (25.7-33.7); MCHC 33.1 g/dl (32.0-36.0); MEAN CELL VOLUME 87.2 fl (80-96); MEAN PLT VOLUME 8.1 fl (7.5-11.1); PLATELET COUNT 62 10^3/uL (134-434); RDW 17.1 % (11.6-15.6)
[2022-06-09 09:30] LABS: CHLORIDE 116 mmol/L (98-107); SODIUM 147 mmol/L (136-145)
[2022-06-09 09:35] LABS: CALCIUM 7.4 mg/dL (8.5-10.1); GLUCOSE,RANDOM 190 mg/dL (74-106)
[2022-06-09 09:36] LABS: ALBUMIN 1.2 g/dl (3.4-5.0); ANION GAP 8 MMOL/L (8-16); BLOOD UREA NITROGEN 27.4 mg/dL (7-18); CO2 23 mmol/L (21-32); MAGNESIUM 2.2 mg/dL (1.8-2.4)
[2022-06-09 09:38] LABS: BILIRUBIN,DIRECT 5.9 mg/dL (0.0-0.2); SGPT/ALT 47 U/L (13-61)
[2022-06-09 09:39] LABS: CREATININE 0.4 mg/dL (0.55-1.3); PHOSPHOROUS 2.9 mg/dL (2.5-4.9); SGOT/AST 94 U/L (15-37)
[2022-06-09 09:40] LABS: BILIRUBIN,TOTAL 7.3 mg/dL (0.2-1); TOT PROT 3.7 g/dl (6.4-8.2)
[2022-06-09 09:48] LABS: ALK PHOS > 1000 U/L (45-117)
[2022-06-09] MEDS: PANTOPRAZOLE SODIUM 40 MG VIAL IVPUSH SCH (09:56)
[2022-06-09] MEDS: DEXAMETHASONE SOD PHOSPHATE 10 MG/1 ML VIAL IVPUSH SCH (09:56)
[2022-06-09 10:14] LABS: ANISOCYTOSIS 1+; MACROCYTOSIS 0; PLATELET ESTIMATE DECREASED
[2022-06-09] MEDS: LEVOTHYROXINE SODIUM 100 MCG VIAL IVPUSH SCH (11:35)
[2022-06-09] MEDS: D5-1/2NS+20 MEQ KCL - 20 MEQ/1,000 ML INFUS.BAG IV SCH (15:04)
[2022-06-10] MEDS ORDERED: PIPERACILLIN/TAZOBACTAM 3.375 GM VIAL IVPB ONE ×3 (02:40→21:57)
[2022-06-10] MEDS ORDERED: DEXTROSE 5%-WATER - 50 ML IVPB ONE ×3 (02:41→21:58)
[2022-06-10] MEDS: PIPERACILLIN/TAZOB 3.375 GM 3.375 GM in DEXTROSE 5%-WATER - 50 ML IVPB SCH ×3 (03:07→21:59)
[2022-06-10] MEDS: INSULIN SLIDING SCALE (NOVOLOG) 1 VIAL SQ SCH ×4 (03:07→21:52)
[2022-06-10] MEDS: D5-1/2NS+20 MEQ KCL - 20 MEQ/1,000 ML INFUS.BAG IV SCH (03:24)
[2022-06-10] MEDS: REMDESIVIR 100 MG in SODIUM CHLORIDE 250 ML IVPB SCH (04:49)
[2022-06-10 08:50] LABS: HEMATOCRIT 27.6 % (32.4-45.2); HEMOGLOBIN 9.1 GM/dL (10.7-15.3); MCH 28.6 pg (25.7-33.7); MCHC 33.1 g/dl (32.0-36.0); MEAN CELL VOLUME 86.7 fl (80-96); MEAN PLT VOLUME 8.2 fl (7.5-11.1); PLATELET COUNT 44 10^3/uL (134-434); RBC 3.19 M/mm3 (3.60-5.2); RDW 17.8 % (11.6-15.6)
[2022-06-10 08:53] LABS: CALCIUM 7.2 mg/dL (8.5-10.1)
[2022-06-10 08:54] LABS: ALBUMIN 1.2 g/dl (3.4-5.0); BLOOD UREA NITROGEN 25.7 mg/dL (7-18); MAGNESIUM 2.1 mg/dL (1.8-2.4)
[2022-06-10 08:57] LABS: CREATININE 0.6 mg/dL (0.55-1.3); PHOSPHOROUS 1.6 mg/dL (2.5-4.9)
[2022-06-10 08:59] LABS: BILIRUBIN,TOTAL 9.2 mg/dL (0.2-1); TOT PROT 3.7 g/dl (6.4-8.2)
[2022-06-10] MEDS: DEXAMETHASONE SOD PHOSPHATE 10 MG/1 ML VIAL IVPUSH SCH (09:27)
[2022-06-10] MEDS: PANTOPRAZOLE SODIUM 40 MG VIAL IVPUSH SCH (09:28)
[2022-06-10 10:39] LABS: ANISOCYTOSIS 3+; MACROCYTOSIS 0; PLATELET ESTIMATE DECREASED
[2022-06-10] MEDS ORDERED: POTASSIUM PHOSPHATE 30 MM in DEXTROSE 5%-WATER - 500 ML IVPB ONE (13:30)
[2022-06-10] MEDS: POTASSIUM CHLORIDE 20 MEQ in DEXTROSE 5%-WATER - 1,000 ML IV SCH (14:06)
[2022-06-11] MEDS: POTASSIUM CHLORIDE 20 MEQ in DEXTROSE 5%-WATER - 1,000 ML IV SCH (03:20)
[2022-06-11] MEDS: INSULIN SLIDING SCALE (NOVOLOG) 1 VIAL SQ SCH ×4 (03:30→22:03)
[2022-06-11] MEDS ORDERED: DEXTROSE 5%-WATER - 50 ML IVPB ONE ×3 (03:35→21:56)
[2022-06-11] MEDS ORDERED: PIPERACILLIN/TAZOBACTAM 3.375 GM VIAL IVPB ONE ×3 (03:35→21:55)
[2022-06-11] MEDS: PIPERACILLIN/TAZOB 3.375 GM 3.375 GM in DEXTROSE 5%-WATER - 50 ML IVPB SCH ×3 (03:41→22:00)
[2022-06-11] MEDS: REMDESIVIR 100 MG in SODIUM CHLORIDE 250 ML IVPB SCH (05:36)
[2022-06-11 08:46] LABS: CALCIUM 7.3 mg/dL (8.5-10.1)
[2022-06-11 08:47] LABS: ALBUMIN 1.3 g/dl (3.4-5.0); BLOOD UREA NITROGEN 17.3 mg/dL (7-18); MAGNESIUM 2.1 mg/dL (1.8-2.4)
[2022-06-11 08:50] LABS: CREATININE 0.5 mg/dL (0.55-1.3); PHOSPHOROUS 2.5 mg/dL (2.5-4.9)
[2022-06-11 08:51] LABS: BILIRUBIN,TOTAL 10.2 mg/dL (0.2-1); TOT PROT 3.9 g/dl (6.4-8.2)
[2022-06-11 09:01] LABS: HEMATOCRIT 30.1 % (32.4-45.2); HEMOGLOBIN 9.9 GM/dL (10.7-15.3); MCH 28.8 pg (25.7-33.7); MEAN CELL VOLUME 87.5 fl (80-96); MEAN PLT VOLUME 8.7 fl (7.5-11.1); PLATELET COUNT 58 10^3/uL (134-434); RBC 3.44 M/mm3 (3.60-5.2); RDW 18.1 % (11.6-15.6)
[2022-06-11] MEDS: PANTOPRAZOLE SODIUM 40 MG VIAL IVPUSH SCH (09:31)
[2022-06-11] MEDS: DEXAMETHASONE SOD PHOSPHATE 10 MG/1 ML VIAL IVPUSH SCH (09:31)
[2022-06-11] MEDS: LEVOTHYROXINE SODIUM 100 MCG VIAL IVPUSH SCH ×2 (09:32→19:31)
[2022-06-11 09:57] LABS: ANISOCYTOSIS 2+; MACROCYTOSIS 0
[2022-06-11] MEDS ORDERED: THIAMINE HCL 200 MG/2 ML VIAL IVPB SCH (10:15)
[2022-06-11] MEDS: THIAMINE HCL 200 MG/2 ML VIAL IVPB SCH (17:53)
[2022-06-11 18:37] LABS: INR 1.38 (0.83-1.09); PROTHROMBIN TIME (PATIENT) 15.9 SEC (9.7-13.0)
[2022-06-12] MEDS ORDERED: PIPERACILLIN/TAZOBACTAM 3.375 GM VIAL IVPB ONE ×3 (03:23→22:34)
[2022-06-12] MEDS ORDERED: DEXTROSE 5%-WATER - 50 ML IVPB ONE ×3 (03:24→22:34)
[2022-06-12] MEDS: PIPERACILLIN/TAZOB 3.375 GM 3.375 GM in DEXTROSE 5%-WATER - 50 ML IVPB SCH ×3 (03:30→22:47)
[2022-06-12] MEDS: INSULIN SLIDING SCALE (NOVOLOG) 1 VIAL SQ SCH ×4 (05:59→22:47)
[2022-06-12 08:47] LABS: INR 1.26 (0.83-1.09); PROTHROMBIN TIME (PATIENT) 14.5 SEC (9.7-13.0)
[2022-06-12 08:55] LABS: CHLORIDE 110 mmol/L (98-107); SODIUM 144 mmol/L (136-145)
[2022-06-12 09:13] LABS: CALCIUM 7.1 mg/dL (8.5-10.1)
[2022-06-12 09:14] LABS: ALBUMIN 1.4 g/dl (3.4-5.0); ANION GAP 8 MMOL/L (8-16); CO2 26 mmol/L (21-32); GLUCOSE,RANDOM 146 mg/dL (74-106); MAGNESIUM 1.9 mg/dL (1.8-2.4)
[2022-06-12 09:16] LABS: CREATININE 0.3 mg/dL (0.55-1.3); PHOSPHOROUS 1.9 mg/dL (2.5-4.9); SGOT/AST 106 U/L (15-37); SGPT/ALT 66 U/L (13-61)
[2022-06-12 09:18] LABS: BILIRUBIN,TOTAL 11.2 mg/dL (0.2-1); TOT PROT 3.7 g/dl (6.4-8.2)
[2022-06-12 09:21] LABS: ALK PHOS > 1000 U/L (45-117)
[2022-06-12] MEDS: THIAMINE HCL 200 MG/2 ML VIAL IVPB SCH (09:25)
[2022-06-12] MEDS: DEXAMETHASONE SOD PHOSPHATE 10 MG/1 ML VIAL IVPUSH SCH (09:25)
[2022-06-12] MEDS: PANTOPRAZOLE SODIUM 40 MG VIAL IVPUSH SCH (09:25)
[2022-06-12] MEDS: LEVOTHYROXINE SODIUM 100 MCG VIAL IVPUSH SCH (09:26)
[2022-06-12 09:43] LABS: HEMATOCRIT 27.7 % (32.4-45.2); HEMOGLOBIN 9.2 GM/dL (10.7-15.3); MCH 28.6 pg (25.7-33.7); MCHC 33.3 g/dl (32.0-36.0); MEAN CELL VOLUME 85.8 fl (80-96); MEAN PLT VOLUME 8.3 fl (7.5-11.1); PLATELET COUNT 58 10^3/uL (134-434); RBC 3.22 M/mm3 (3.60-5.2); RDW 17.5 % (11.6-15.6)
[2022-06-12 09:46] LABS: WHITE BLOOD COUNT 0.7 K/mm3 (4.0-10.0)
[2022-06-12 11:51] LABS: ANISOCYTOSIS 0; HELMET CELLS 0; HOWELL-JOLLY BODIES 0; MACROCYTOSIS 0; OVALOCYTE 0; ROULEAU 0; SICKELED CELLS 0; TARGET CELLS 0; TEAR DROP CELLS 0; TOXIC GRANULATION 0
[2022-06-12] MEDS ORDERED: POTASSIUM CHLORIDE TABS 20 MEQ TABLET.ER (FP) PO ONE (12:33)
[2022-06-12] MEDS ORDERED: POTASSIUM PHOSPHATE 30 MM in DEXTROSE 5%-WATER - 500 ML IVPB ONE (12:39)
[2022-06-12] MEDS: NAPH,MB-DB/K PH,MBDB POWDER PACKET PO SCH ×2 (13:21→22:47)
[2022-06-13] MEDS ORDERED: PIPERACILLIN/TAZOBACTAM 3.375 GM VIAL IVPB ONE ×2 (03:14→21:32)
[2022-06-13] MEDS: PIPERACILLIN/TAZOB 3.375 GM 3.375 GM in DEXTROSE 5%-WATER - 50 ML IVPB SCH ×2 (03:14→12:30)
[2022-06-13] MEDS ORDERED: DEXTROSE 5%-WATER - 50 ML IVPB ONE ×2 (03:15→21:32)
[2022-06-13] MEDS: NAPH,MB-DB/K PH,MBDB POWDER PACKET PO SCH ×3 (06:05→21:44)
[2022-06-13] MEDS: INSULIN SLIDING SCALE (NOVOLOG) 1 VIAL SQ SCH ×4 (06:05→21:44)
[2022-06-13 08:14] LABS: HEMATOCRIT 27.1 % (32.4-45.2); MCH 28.3 pg (25.7-33.7); MCHC 33.2 g/dl (32.0-36.0); MEAN CELL VOLUME 85.2 fl (80-96); MEAN PLT VOLUME 8.3 fl (7.5-11.1); PLATELET COUNT 77 10^3/uL (134-434); RBC 3.19 M/mm3 (3.60-5.2); RDW 17.4 % (11.6-15.6)
[2022-06-13 08:29] LABS: ALBUMIN 1.4 g/dl (3.4-5.0); BLOOD UREA NITROGEN 16.8 mg/dL (7-18); CALCIUM 7.1 mg/dL (8.5-10.1); MAGNESIUM 1.9 mg/dL (1.8-2.4)
[2022-06-13 08:32] LABS: PHOSPHOROUS 2.4 mg/dL (2.5-4.9)
[2022-06-13 08:33] LABS: CREATININE 0.4 mg/dL (0.55-1.3)
[2022-06-13 08:34] LABS: TOT PROT 3.9 g/dl (6.4-8.2)
[2022-06-13] MEDS ORDERED: POTASSIUM CHLORIDE ORAL LIQUID 20 MEQ/15 ML PO ONE ×2 (09:32→10:04)
[2022-06-13] MEDS: DEXAMETHASONE SOD PHOSPHATE 10 MG/1 ML VIAL IVPUSH SCH (09:53)
[2022-06-13] MEDS: PANTOPRAZOLE SODIUM 40 MG VIAL IVPUSH SCH (09:53)
[2022-06-13] MEDS: THIAMINE HCL 200 MG/2 ML VIAL IVPB SCH (09:53)
[2022-06-13] MEDS: LEVOTHYROXINE SODIUM 100 MCG VIAL IVPUSH SCH (09:54)
[2022-06-13 10:32] LABS: ANISOCYTOSIS 0; HELMET CELLS 0; HOWELL-JOLLY BODIES 0; MACROCYTOSIS 0; OVALOCYTE 0; ROULEAU 0; SICKELED CELLS 0; TARGET CELLS 0; TEAR DROP CELLS 0; TOXIC GRANULATION 0
[2022-06-14] MEDS: DEXAMETHASONE SOD PHOSPHATE 10 MG/1 ML VIAL IVPUSH SCH ×2 (02:25→09:36)
[2022-06-14] MEDS: PIPERACILLIN/TAZOB 3.375 GM 3.375 GM in DEXTROSE 5%-WATER - 50 ML IVPB SCH ×4 (02:30→17:38)
[2022-06-14] MEDS: NAPH,MB-DB/K PH,MBDB POWDER PACKET PO SCH ×3 (05:37→22:53)
[2022-06-14] MEDS: INSULIN SLIDING SCALE (NOVOLOG) 1 VIAL SQ SCH ×4 (06:09→21:18)
[2022-06-14 08:24] LABS: HEMATOCRIT 26.4 % (32.4-45.2); HEMOGLOBIN 8.9 GM/dL (10.7-15.3); MCH 29.1 pg (25.7-33.7); MCHC 33.9 g/dl (32.0-36.0); MEAN CELL VOLUME 85.6 fl (80-96); MEAN PLT VOLUME 8.3 fl (7.5-11.1); PLATELET COUNT 83 10^3/uL (134-434); RBC 3.08 M/mm3 (3.60-5.2)
[2022-06-14 08:29] LABS: WHITE BLOOD COUNT 1.4 K/mm3 (4.0-10.0)
[2022-06-14] MEDS ORDERED: DEXTROSE 5%-WATER - 50 ML IVPB ONE ×2 (08:45→17:27)
[2022-06-14] MEDS ORDERED: PIPERACILLIN/TAZOBACTAM 3.375 GM VIAL IVPB ONE ×2 (08:45→17:26)
[2022-06-14 08:55] LABS: ALBUMIN 1.4 g/dl (3.4-5.0); BLOOD UREA NITROGEN 13.3 mg/dL (7-18); CALCIUM 7.5 mg/dL (8.5-10.1)
[2022-06-14 08:58] LABS: CREATININE 0.3 mg/dL (0.55-1.3); PHOSPHOROUS 2.1 mg/dL (2.5-4.9)
[2022-06-14 09:00] LABS: BILIRUBIN,TOTAL 11.4 mg/dL (0.2-1); TOT PROT 3.9 g/dl (6.4-8.2)
[2022-06-14] MEDS: PANTOPRAZOLE SODIUM 40 MG VIAL IVPUSH SCH (09:35)
[2022-06-14] MEDS: THIAMINE HCL 200 MG/2 ML VIAL IVPB SCH (09:36)
[2022-06-14] MEDS: BACITRACIN 15 GM TUBE TOPICAL OINTMENT TP SCH (09:36)
[2022-06-14] MEDS: LEVOTHYROXINE SODIUM 100 MCG VIAL IVPUSH SCH (09:36)
[2022-06-14 09:39] LABS: ANISOCYTOSIS 0; MACROCYTOSIS 0
[2022-06-14] MEDS ORDERED: NAPH,MB-DB/K PH,MBDB POWDER PACKET PO ONE (17:32)
[2022-06-15] MEDS ORDERED: DEXTROSE 5%-WATER - 0 ML IVPB ONE (01:09)
[2022-06-15] MEDS ORDERED: PIPERACILLIN/TAZOBACTAM 3.375 GM VIAL IVPB ONE ×4 (01:09→16:43)
[2022-06-15] MEDS: PIPERACILLIN/TAZOB 3.375 GM 3.375 GM in DEXTROSE 5%-WATER - 50 ML IVPB SCH ×3 (01:46→17:02)
[2022-06-15] MEDS: NAPH,MB-DB/K PH,MBDB POWDER PACKET PO SCH ×3 (06:28→21:41)
[2022-06-15] MEDS: INSULIN SLIDING SCALE (NOVOLOG) 1 VIAL SQ SCH ×4 (07:00→21:41)
[2022-06-15] MEDS ORDERED: DEXTROSE 5%-WATER - 50 ML IVPB ONE ×3 (09:53→16:43)
[2022-06-15] MEDS: PANTOPRAZOLE SODIUM 40 MG VIAL IVPUSH SCH (10:34)
[2022-06-15] MEDS: DEXAMETHASONE SOD PHOSPHATE 10 MG/1 ML VIAL IVPUSH SCH (10:34)
[2022-06-15] MEDS: BACITRACIN 15 GM TUBE TOPICAL OINTMENT TP SCH (10:35)
[2022-06-15] MEDS: THIAMINE HCL 200 MG/2 ML VIAL IVPB SCH (10:35)
[2022-06-15] MEDS: LEVOTHYROXINE SODIUM 100 MCG VIAL IVPUSH SCH (11:54)
[2022-06-16] MEDS ORDERED: PIPERACILLIN/TAZOBACTAM 3.375 GM VIAL IVPB ONE (00:56)
[2022-06-16] MEDS ORDERED: DEXTROSE 5%-WATER - 50 ML IVPB ONE (00:56)
[2022-06-16] MEDS: PIPERACILLIN/TAZOB 3.375 GM 3.375 GM in DEXTROSE 5%-WATER - 50 ML IVPB SCH (01:09)
[2022-06-16] MEDS: NAPH,MB-DB/K PH,MBDB POWDER PACKET PO SCH ×3 (05:29→21:34)
[2022-06-16] MEDS: INSULIN SLIDING SCALE (NOVOLOG) 1 VIAL SQ SCH ×4 (06:09→23:10)
[2022-06-16 07:54] LABS: HEMATOCRIT 32.4 % (32.4-45.2); HEMOGLOBIN 10.5 GM/dL (10.7-15.3); MCH 28.1 pg (25.7-33.7); MCHC 32.4 g/dl (32.0-36.0); MEAN CELL VOLUME 86.9 fl (80-96); MEAN PLT VOLUME 8.5 fl (7.5-11.1); PLATELET COUNT 83 10^3/uL (134-434); RBC 3.73 M/mm3 (3.60-5.2); RDW 17.6 % (11.6-15.6); WHITE BLOOD COUNT 2.2 K/mm3 (4.0-10.0)
[2022-06-16 08:20] LABS: CALCIUM 7.5 mg/dL (8.5-10.1)
[2022-06-16 08:21] LABS: ALBUMIN 1.5 g/dl (3.4-5.0); BLOOD UREA NITROGEN 9.9 mg/dL (7-18)
[2022-06-16 08:24] LABS: PHOSPHOROUS 2.1 mg/dL (2.5-4.9)
[2022-06-16 08:26] LABS: CREATININE 0.3 mg/dL (0.55-1.3)
[2022-06-16 08:28] LABS: BILIRUBIN,TOTAL 11.6 mg/dL (0.2-1); TOT PROT 4.3 g/dl (6.4-8.2)
[2022-06-16 08:46] LABS: ANISOCYTOSIS 0; HELMET CELLS 0; HOWELL-JOLLY BODIES 0; MACROCYTOSIS 0; OVALOCYTE 0; ROULEAU 0; SICKELED CELLS 0; TARGET CELLS 0; TEAR DROP CELLS 0; TOXIC GRANULATION 0
[2022-06-16] MEDS ORDERED: SILVER SULFADIAZINE 1% TOP CREAM 50 GM JAR TP SCH (10:00)
[2022-06-16] MEDS: PANTOPRAZOLE SODIUM 40 MG VIAL IVPUSH SCH (10:19)
[2022-06-16] MEDS: DEXAMETHASONE SOD PHOSPHATE 10 MG/1 ML VIAL IVPUSH SCH (10:19)
[2022-06-16] MEDS: THIAMINE HCL 200 MG/2 ML VIAL IVPB SCH (10:19)
[2022-06-16] MEDS: LEVOTHYROXINE SODIUM 100 MCG VIAL IVPUSH SCH (10:23)
[2022-06-16] MEDS: BACITRACIN 15 GM TUBE TOPICAL OINTMENT TP SCH (10:24)
[2022-06-16] MEDS ORDERED: POTASSIUM PHOSPHATE 30 MM in DEXTROSE 5%-WATER - 500 ML IVPB ONE (12:52)
[2022-06-16] MEDS: SODIUM PHOSPHATE - 20 MM in SODIUM CHLORIDE 500 ML IVPB ONE ×2 (15:13→15:43)
[2022-06-17] MEDS: NAPH,MB-DB/K PH,MBDB POWDER PACKET PO SCH ×3 (06:33→21:25)
[2022-06-17] MEDS: INSULIN SLIDING SCALE (NOVOLOG) 1 VIAL SQ SCH ×5 (06:33→21:24)
[2022-06-17] MEDS: BACITRACIN 15 GM TUBE TOPICAL OINTMENT TP SCH (09:29)
[2022-06-17] MEDS: PANTOPRAZOLE SODIUM 40 MG VIAL IVPUSH SCH (10:55)
[2022-06-17] MEDS: THIAMINE HCL 200 MG/2 ML VIAL IVPB SCH (10:55)
[2022-06-17] MEDS: LEVOTHYROXINE SODIUM 100 MCG VIAL IVPUSH SCH (10:55)
[2022-06-17] MEDS ORDERED: IBUPROFEN 800 MG/8 ML IJ IVPB ONE (21:43)
[2022-06-17] MEDS ORDERED: KETOROLAC TROMETHAMINE 30 MG/1 ML VIAL IM ONE (21:47)
[2022-06-18 03:34] LABS: EPI CELLS 4 /uL (0-25.1); HYALINE CASTS 0 /uL (0-3.1); PH,URINE 6.5 (5.0-8.0); URINE APPEARANCE CLEAR; URINE BILIRUBIN 3+ (NEGATIVE); URINE COLOR DK YELLOW; URINE GLUCOSE (UA) NEGATIVE (NEGATIVE); URINE KETONE NEGATIVE (NEGATIVE); URINE LEUK ESTERASE TRACE (NEGATIVE); URINE NITRITE POSITIVE (NEGATIVE); URINE PROTEIN 1+ (NEGATIVE); URINE RBC 6 /uL (0-23.9); URINE UROBILINOGEN 4.0 E.U/dl mg/dL (0.2-1.0); URINE WBC 54 /uL (0-25.8)
[2022-06-18] MEDS: NAPH,MB-DB/K PH,MBDB POWDER PACKET PO SCH ×3 (05:14→21:25)
[2022-06-18] MEDS: INSULIN SLIDING SCALE (NOVOLOG) 1 VIAL SQ SCH ×4 (06:13→21:24)
[2022-06-18 07:17] LABS: URINE CRYSTALS NONE SEEN /hpf; YEAST MANY (NEGATIVE)
[2022-06-18] MEDS: BACITRACIN 15 GM TUBE TOPICAL OINTMENT TP SCH (10:00)
[2022-06-18] MEDS: PANTOPRAZOLE SODIUM 40 MG VIAL IVPUSH SCH ×2 (11:40→12:14)
[2022-06-18] MEDS: THIAMINE HCL 200 MG/2 ML VIAL IVPB SCH ×2 (11:40→12:14)
[2022-06-18] MEDS: LEVOTHYROXINE SODIUM 100 MCG VIAL IVPUSH SCH (12:13)
[2022-06-19] MEDS: INSULIN SLIDING SCALE (NOVOLOG) 1 VIAL SQ SCH ×4 (06:00→21:46)
[2022-06-19] MEDS: NAPH,MB-DB/K PH,MBDB POWDER PACKET PO SCH ×3 (06:00→21:46)
[2022-06-19] MEDS ORDERED: ACETAMINOPHEN 325 MG TABLET (FP) PO PRN (06:04)
[2022-06-19] MEDS ORDERED: ACETAMINOPHEN 650 MG SUPP.RECT PR PRN (06:13)
[2022-06-19] MEDS: PANTOPRAZOLE SODIUM 40 MG VIAL IVPUSH SCH (10:38)
[2022-06-19] MEDS: BACITRACIN 15 GM TUBE TOPICAL OINTMENT TP SCH (10:38)
[2022-06-19] MEDS: THIAMINE HCL 200 MG/2 ML VIAL IVPB SCH (10:39)
[2022-06-19] MEDS: LEVOTHYROXINE SODIUM 100 MCG VIAL IVPUSH SCH (10:39)
[2022-06-19] MEDS: ACETAMINOPHEN 650 MG SUPP.RECT RC PRN (21:46)
[2022-06-20] MEDS: INSULIN SLIDING SCALE (NOVOLOG) 1 VIAL SQ SCH ×4 (06:29→22:08)
[2022-06-20] MEDS: NAPH,MB-DB/K PH,MBDB POWDER PACKET PO SCH ×3 (06:29→21:58)
[2022-06-20] MEDS: PANTOPRAZOLE SODIUM 40 MG VIAL IVPUSH SCH (11:22)
[2022-06-20] MEDS: THIAMINE HCL 200 MG/2 ML VIAL IVPB SCH (11:22)
[2022-06-20] MEDS: LEVOTHYROXINE SODIUM 100 MCG VIAL IVPUSH SCH (11:22)
[2022-06-20] MEDS: BACITRACIN 15 GM TUBE TOPICAL OINTMENT TP SCH (11:23)
[2022-06-21] MEDS: NAPH,MB-DB/K PH,MBDB POWDER PACKET PO SCH ×2 (06:10→13:33)
[2022-06-21] MEDS: INSULIN SLIDING SCALE (NOVOLOG) 1 VIAL SQ SCH ×2 (06:20→11:24)
[2022-06-21] MEDS: THIAMINE HCL 200 MG/2 ML VIAL IVPB SCH (10:07)
[2022-06-21] MEDS: BACITRACIN 15 GM TUBE TOPICAL OINTMENT TP SCH (10:07)
[2022-06-21] MEDS: PANTOPRAZOLE SODIUM 40 MG VIAL IVPUSH SCH (10:07)
[2022-06-21] MEDS: LEVOTHYROXINE SODIUM 100 MCG VIAL IVPUSH SCH (10:07)
[2022-06-21] MEDS: NITROFURANTOIN MACROCRYSTAL 50 MG CAPSULE (FP) PO SCH (18:32)
[2022-06-22] MEDS: NITROFURANTOIN MACROCRYSTAL 50 MG CAPSULE (FP) PO SCH ×4 (00:05→17:20)
[2022-06-22] MEDS: morphine SULFATE 10 MG/5 ML UNIT-DOSE CUP PO SCH ×2 (17:19→21:51)
[2022-06-23] MEDS: NITROFURANTOIN MACROCRYSTAL 50 MG CAPSULE (FP) PO SCH ×5 (00:05→23:58)
[2022-06-23] MEDS: morphine SULFATE 10 MG/5 ML UNIT-DOSE CUP PO SCH ×4 (03:30→21:52)
[2022-06-24] MEDS: morphine SULFATE 10 MG/5 ML UNIT-DOSE CUP PO SCH ×4 (03:56→22:03)
[2022-06-24] MEDS: ACETAMINOPHEN 650 MG SUPP.RECT RC PRN (17:43)
[2022-06-25] MEDS: morphine SULFATE 10 MG/5 ML UNIT-DOSE CUP PO SCH ×4 (04:04→22:13)
[2022-06-26] MEDS: morphine SULFATE 10 MG/5 ML UNIT-DOSE CUP PO SCH ×4 (04:33→22:19)
[2022-06-27] MEDS: morphine SULFATE 10 MG/5 ML UNIT-DOSE CUP PO SCH ×5 (04:00→21:29)
[2022-06-28] MEDS: morphine SULFATE 10 MG/5 ML UNIT-DOSE CUP PO SCH ×4 (03:29→21:39)
[2022-06-29] MEDS: morphine SULFATE 10 MG/5 ML UNIT-DOSE CUP PO SCH ×4 (04:52→20:53)
[2022-06-29] MEDS ORDERED: MORPHINE ORAL CONCENTRATE 20 MG/ML - 30ML BOTTLE PO PRN (14:11)
[2022-06-29] MEDS ORDERED: MORPHINE ORAL CONCENTRATE 20 MG/ML - 30ML BOTTLE PO SCH (15:00)
[2022-06-29] MEDS: ACETAMINOPHEN 650 MG SUPP.RECT RC PRN (21:09)
[2022-06-30] MEDS: morphine SULFATE 10 MG/5 ML UNIT-DOSE CUP PO SCH ×4 (00:38→15:09)
[2022-06-30] MEDS: ACETAMINOPHEN 650 MG SUPP.RECT RC PRN (12:38)
[2022-06-30] MEDS ORDERED: SCOPOLAMINE HYDROBROMIDE 1 PATCH PATCH.TD72 TD SCH (15:00)
[2022-06-30] MEDS ORDERED: ACETAMINOPHEN 650 MG SUPP.RECT RC PRN (15:28)
[2022-06-30] MEDS ORDERED: ACETAMINOPHEN 650 MG SUPP.RECT PR ONE (15:29)
[2022-07-01 01:31] VITALS: RESP 16; TEMP 96.3
[2022-07-01 01:34] VITALS: BP 56/32; PULSE 88
== END 2022-07-01 08:16 | disposition expired | DRG 871 ==
LOC: JER 12:36 → JERBED 16:22 → J4S 06-08 00:21 → JERBED 06-08 01:31 → J4S 06-08 01:33
PROVIDERS: ADMIT Family Medicine; ATTEND Internal Medicine
PROC: XW033E5 Introduction of Remdesivir Anti-infective into Peripheral Vein, Percutaneous Approach, New Technology Group 5 (ICD-10-PCS; 2022-06-06)
PROC: 30233N1 Transfusion of Nonautologous Red Blood Cells into Peripheral Vein, Percutaneous Approach (ICD-10-PCS; principal; 2022-06-08)
DX: A41.9 Sepsis, unspecified organism (principal); G93.41 Metabolic encephalopathy; U07.1 COVID-19; J12.82 Pneumonia due to coronavirus disease 2019; J96.01 Acute respiratory failure with hypoxia; C81.90 Hodgkin lymphoma, unspecified, unspecified site; D61.818 Other pancytopenia; E87.0 Hyperosmolality and hypernatremia; G30.9 Alzheimer's disease, unspecified; K74.3 Primary biliary cirrhosis; F02.80 Dementia in other diseases classified elsewhere, unspecified severity, without behavioral disturbance, psychotic disturbance, mood disturbance, and anxiety; K75.3 Granulomatous hepatitis, not elsewhere classified; E03.9 Hypothyroidism, unspecified; I10 Essential (primary) hypertension; E78.5 Hyperlipidemia, unspecified; E87.6 Hypokalemia; E83.39 Other disorders of phosphorus metabolism
CPT/HCPCS: 0241U-QW; 36415; 36430; 70450-TC; 71045-TC-FY; 74176-TC; 76705-TC; 80048; 80053; 80076; 81003; 82140; 82248; 82436; 82550; 82553; 82803; 82962; 83010; 83605; 83615; 83690; 83735; 83935; 84100; 84133; 84300; 84443; 84484; 85025; 85045; 85379; 85610; 85651; 85730; 86140; 86850; 86900; 86901; 86922; 87040; 87086; 87804; 93005; 93010; 94761; 97116-GP; 97161-GP; 99285-25; C9399; C9803-CS; J1100; P9058; U0003; U0005